=== PATIENT | male | born 1995 | race Hispanic/Latino ===

== ENCOUNTER 2017-08-11 11:04 | Emergency (ER) | payer BC, SELFPAY ==
--- OUTSIDE RECORDS SUMMARY | 2017-08-11 11:07 | XMS REPORT ---
:1995 [facility] Address [address] [place] [address] Dr. Dar[address]. [address] [place] [address] Care Team Providers Name Role Phone DR CARLEE MENDEZ Unavailable Unavailable Problems This patient has no known problems. Allergies, Adverse Reactions, Alerts This patient has no known allergies or adverse reactions. Medications This patient has no known medications. Encounters Start End Encounter Admission Attending Care Care Encounter Date/Time Date/Time Type Type Clinicians Facility Department ID 2017-03-02 2017-03-02 Emergency E CARLEE MENDEZ [facility] [id number] 13:15:00 16:20:00 Results Test Description Test Time Test Comments Text Results Atomic Results Result Comments DIRECT STREP GROUP A 2017-03-04 14:11:00 Test Item Value Reference Range Comments Culture Observations (test code=COB1) NO BETA HEMOLYTIC STREPTOCOCCUS ISOLATED Direct Exam (test code=DE1) NEGATIVE FOR STREP A ANTIGEN DIRECT INFLUENZA A AND B [id number] 14:32:00 Test Item Value Reference Range Comments Direct Exam (test code=DE1) PRESUMPTIVE NEGATIVE FOR THE PRESENCE OF INFLUENZA ANTIGEN COMPREHENSIVE METABOLIC [id number] 14:31:00 Test Item Value Reference Range Comments GLUCOSE (test code=06D) 90 mg/dL 75-100 SODIUM (test code=01A) 138 mmol/L 136-145 POTASSIUM (test code=01B) 3.8 mmol/L 3.6-5.1 CHLORIDE (test code=04A) 103 mmol/L 98-107 CO2 (test code=02A) 28 mmol/L 22-32 ANION GAP (test code=ANG) 10.8 mmol/L BUN (test code=05D) 9 mg/dL 7-18 CREATININE (test code=03E) 0.9 mg/dL 0.7-1.3 BUN/CREA (test code=BCR) 10 12-20 CALCIUM (test code=09D) 9.2 mg/dL 8.3-9.5 BILI TOTAL (test code=11A) 0.4 mg/dL 0.2-1.0 PROTEIN (test code=07D) 8.5 g/dL 6.4-8.2 ALBUMIN (test code=08D) 4.3 g/dL 3.5-4.8 GLOBULIN (test code=GLB) 4.2 g/dL 1.5-3.8 ALB/GLOB (test code=AGRR) 1.0 1.0-2.6 ALK PHOS (test code=35A) 124 IU/L 42-121 AST (test code=30A) 18 IU/L <=42 ALT (test code=31A) 31 IU/L <=78 XR ABDOMEN 2 VIEWS W/PA [id number] 14:24:32Abdominal series, 3 views.Location Code: [id number] HISTORY: Abdominal pain.COMPARISON: None.COMMENTS: A frontal view of the chest shows the lungs to be clear andwell- inflated. The costophrenic angles are sharp. The cardiomediastinalsilhouette is unremarkable.Supine and upright views of the abdomen demonstrate a normal bowel gas pattern. Stool and gas are present throughout the colon and rectum. IMPRESSION: No acute [id number] 14:18:00 Test Item Value Reference Range Comments COLOR (test code=COLU) YELLOW YELLOW CLARITY (test code=CLA) CLEAR CLEAR GLUCOSE UR (test code=UA GLUCOSE) NEGATIVE NEGATIVE BILI UR (test code=BILE) NEGATIVE NEGATIVE KETONES UR (test code=OSBALDO) NEGATIVE NEGATIVE SP GRAVITY (test code=SPGR) 1.010 1.005-1.030 PH UR (test code=PH) 6.5 4.5-8.0 PROTEIN UR (test code=PU) NEGATIVE NEGATIVE UROBIL UR (test code=UROQ) 0.2 EU/dL 0.2-1.0 NITRITE UR (test code=NITRITE) NEGATIVE NEGATIVE BLOOD UR (test code=UA BLOOD) NEGATIVE NEGATIVE LEUK ES UR (test code=LEUK) NEGATIVE NEGATIVE CBC (INCLUDES AUTOMATED DIFFERENTIAL)2017-03-02 14:16:00 Test Item Value Reference Range Comments WBC (test code=WBC) 7.3 10\S\3/uL 4.5-13.0 RBC (test code=RBC) 5.43 10\S\6/uL 4.30-5.70 HGB (test code=HBG) 15.5 g/dL 14.0-18.0 HCT (test code=HCT) 44.4 % 35.0-46.0 MCV (test code=MCV) 81.8 fL 80.0-94.0 MCH (test code=MCH) 28.5 pg 27.0-31.0 MCHC (test code=MCHC) 34.9 g/dL 32.0-36.0 RDW (test code=RDW) 12.9 % 11.5-14.5 PLT (test code=PLT) 256 10\S\3/uL 130-400 MPV (test code=MPV) 10.3 fL 9.4-12.4 NEUTROP # (test code=NE#) 5.7 10\S\3/uL 2.0-8.0 LYMPH # (test code=LY#) 0.4 10\S\3/uL 1.2-4.0 MONOCYTE # (test code=MO#) 1.1 10\S\3/uL 0.0-1.1 EOSINOPH # (test code=EO#) 0.2 10\S\3/uL 0.0-0.7 BASOPHIL # (test code=BA#) 0.1 10\S\3/uL 0.0-0.3 IG # (test code=IG#) 0.01 10\S\3/uL 0.00-0.06 NRBC # (test code=NRBC#) 0.00 10\S\3/uL 0.00-0.01 NEUTROPH % (test code=NE%) 77.1 % 35.0-73.0 LYMPH % (test code=LY%) 5.7 % 20.0-55.0 MONO % (test code=MO%) 14.4 % 2.5-10.0 EOSINOPH % (test code=EO%) 2.0 % 0.0-5.0 BASOPHIL % (test code=BA%) 0.7 % 0.0-2.0 IG % (test code=IG%) 0.1 % 0.0-0.8 NRBC% (test code=NRBC%) 0.0 % 0.0-0.2 MANDIFF (test code=MDIFF) NO NO RBC MORPH (test code=RBCMOR) NORMAL
--- NOTE | 2017-08-11 12:43 | RAD REPORT ---
EXAM DESCRIPTION: CT - Head Brain Wo Cont - 08/11/2017 12:35 pm CLINICAL HISTORY: History of trauma to head, headache. Head injury. Vomiting. COMPARISON: [id number] dated 08/21/2010 TECHNIQUE: All CT scans are performed using dose optimization technique as appropriate and may inclu de automated exposure control or mA/KV adjustment according to patient size. FINDINGS: No intracranial hemorrhage, hydrocephalus or extra-axial fluid collection.No areas of brai n edema or evidence of midline shift. The paranasal sinuses and mastoids are clear. The calvarium is intact. IMPRESSION: No acute intracranial abnormality.
--- NOTE | 2017-08-11 12:54 | EDPHYS ---
Physician Documentation [facility] Name: Michael Thornton Age: 21 yrs Sex: Male : 1995 Arrival Date: 08/11/2017 Time: 11:08 Bed 16 Private MD: Adiel Mireles M ED Physician Jorge Delaney HPI: 08/11 11:57 This 21 yrs old Male presents to ER via Ambulatory with complaints of Headache pm1 and sore throat. 11:58 Associated signs and symptoms: Loss of consciousness: This patient did not experience pm1 any loss of consciousness. Pertinent positives: headache, nausea, vomiting, Pertinent negatives: dazed, double vision, neck pain, weakness in extremities, generalized weakness. Severity of symptoms: in the emergency department the symptoms are actually worse. Patient with injury to his right forehead yazdanism area on Sunday. 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 No LOC. Patient with onset of sore throat the following day. Onset of fever last night 101. Painful swallowing. Historical: - Allergies: 11:12 No Known Allergies; hj - Home Meds: 11:12 None [Active]; hj - PMHx: 11:12 None; hj - PSHx: 11:12 None; hj - Immunization history:: Adult Immunizations up to date. - Social history:: Smoking status: Patient/guardian denies using tobacco, Patient/guardian denies using alcohol. - Ebola Screening: : Patient negative for fever greater than or equal to 101.5 degrees Fahrenheit, and additional compatible Ebola Virus Disease symptoms. ROS: 11:58 Constitutional: Negative for fever, chills, and weight loss, Eyes: Negative for injury, pm1 pain, redness, and discharge. 11:58 Neck: Negative for injury, pain, and swelling, Cardiovascular: Negative for chest pain, palpitations, and edema, Respiratory: Negative for shortness of breath, cough, wheezing, and pleuritic chest pain, Abdomen/GI: Negative for abdominal pain, nausea, vomiting, diarrhea, and constipation, Back: Negative for injury and pain, : Negative for injury, bleeding, discharge, and swelling, MS/Extremity: Negative for injury and deformity, Skin: Negative for injury, rash, and discoloration. 11:58 ENT: Positive for sore throat, Negative for drainage from ear(s), ear pain, rhinorrhea, difficulty swallowing, difficulty handling secretions, hoarseness. 11:58 Neuro: Positive for headache, Negative for altered mental status, numbness, tingling, weakness. Exam: 12:00 Constitutional: This is a well developed, well nourished patient who is awake, alert, pm1 and in no acute distress. 12:00 Eyes: Pupils equal round and reactive to light, extra-ocular motions intact. Lids and lashes normal. Conjunctiva and sclera are non-icteric and not injected. Cornea within normal limits. Periorbital areas with no swelling, redness, or edema. Neck: Trachea midline, no thyromegaly or masses palpated, and no cervical lymphadenopathy. Supple, full range of motion without nuchal rigidity, or vertebral point tenderness. No Meningismus. Chest/axilla: Normal chest wall appearance and motion. Nontender with no deformity. No lesions are appreciated. 12:00 Cardiovascular: Regular rate and rhythm with a normal S1 and S2. No gallops, murmurs, or rubs. Normal PMI, no JVD. No pulse deficits. Respiratory: Lungs have equal breath sounds bilaterally, clear to auscultation and percussion. No rales, rhonchi or wheezes noted. No increased work of breathing, no retractions or nasal flaring. Abdomen/GI: Soft, non-tender, with normal bowel sounds. No distension or tympany. No guarding or rebound. No evidence of tenderness throughout. Back: No spinal tenderness. No costovertebral tenderness. Full range of motion. Skin: Warm, dry with normal turgor. Normal color with no rashes, no lesions, and no evidence of cellulitis. MS/ Extremity: Pulses equal, no cyanosis. Neurovascular intact. Full, normal range of motion. 12:00 Head/face: Exam is negative for dang signs, raccoon eyes, Noted is no obvious of injury or deformity except contusion, that is superficial, of the forehead. 12:00 ENT: External ear(s): are unremarkable, Ear canal(s): are normal, TM's: are normal, Nose: is normal, Mouth: is normal, Posterior pharynx: Airway: no evidence of obstruction, patent, Tonsils: bilaterally enlarged, with erythema, no exudate, no ulcerations, erythema, that is moderate, exudate, is not appreciated, peritonsillar mass, is not appreciated, pooling of secretions, is not appreciated. 12:00 Neuro: Orientation: is normal, Cranial nerves: CN II- XII are normal as tested, Cerebellar function: normal finger to nose testing, Motor: moves all fours, Sensation: is normal, no obvious gross deficits, Gait: is steady, at a normal pace, without difficulty. Vital Signs: 11:13 BP 135 / 86; Pulse 102; Resp 18; Temp 99.6(TE); Pulse Ox 99% on R/A; Weight 82.55 kg; hj Height 5 ft. 6 in. (167.64 cm); Pain 10/10; 11:13 Body Mass Index 29.37 (82.55 kg, 167.64 cm) Dietrich Coma Score: 11:58 Eye Response: spontaneous(4). Verbal Response: oriented(5). Motor Response: obeys pm1 commands(6). Total: 15. MDM: 11:19 Patient medically screened. pm1 12:46 Data reviewed: vital signs. Data interpreted: Pulse oximetry: on room air is 99 %. pm1 Interpretation: normal. Counseling: I had a detailed discussion with the patient and/or guardian regarding: the historical points, exam findings, and any diagnostic results supporting the discharge/admit diagnosis, lab results, radiology results, the need for outpatient follow up, to return to the emergency department if symptoms worsen or persist or if there are any questions or concerns that arise at home. 08/11 11:33 Order name: Group A Streptococcus Rapid Sc; Complete Time: 12:32 EDMS 08/11 11:55 Order name: Throat Culture EDMS 08/11 12:08 Order name: Head Brain Wo Cont; Complete Time: 12:46 EDMS Administered Medications: 13:30 Drug: Zofran 4 mg Route: PO; em 13:37 Follow up: Response: Medication administered at discharge. em 13:30 Drug: Tylenol #3 (300 mg-30 mg) 1 tablet Route: PO; em 13:37 Follow up: Response: Medication administered at discharge. em Disposition: 14:30 Co-signature as Attending Physician, Jorge Delaney MD I agree with the assessment and kdr plan of care. Disposition: 08/11/17 12:54 Discharged to Home. Impression: Unspecified injury of head, Acute pharyngitis. - Condition is Stable. - Discharge Instructions: Concussion, Adult, Head Injury, Adult, Pharyngitis, Viral Infections, [id number]. - Prescriptions for Tylenol- Codeine #3 300-30 mg Oral Tablet - take 2 tablet by ORAL route every 6 hours As needed; 30 tablet. Zofran 4 mg Oral Tablet - take 1 tablet by ORAL route every 12 hours As needed; 20 tablet. - Medication Reconciliation Form, Thank You Letter, Antibiotic Education, Prescription Opioid Use, Work release form form. - Follow up: Emergency Department; When: As needed; Reason: Worsening of condition. Follow up: Private Physician; When: 2 - 3 days; Reason: Recheck today's complaints, Continuance of care, Re-evaluation by your physician. - Problem is new. - Symptoms have improved. Signatures: Dispatcher [employer] [facility] Jorge Delaney MD MD kdr Munoz, Edgar, BARN HAND BARN HAND em Rommel Lane RN RN Ray Barnett, JOSLYN VETERINARY ASSISTANT TECHNICIAN pm1 Corrections: (The following items were deleted from the chart) 13:19 13:14 Head Brain Wo Cont+CT.RAD.BRZ ordered. [facility] 13:38 12:54 08/11/2017 12:54 Discharged to Home. Impression: Unspecified injury of headAcute em pharyngitis. Condition is Stable. Forms are Medication Reconciliation Form, Thank You Letter, Antibiotic Education, Prescription Opioid Use. Follow up: Emergency Department; When: As needed; Reason: Worsening of condition. Follow up: Private Physician; When: 2 - 3 days; Reason: Recheck today's complaints, Continuance of care, Re-evaluation by your physician. Problem is new. Symptoms have improved. pm1
--- NOTE | 2017-08-11 12:54 | ER ---
Nurse's Notes [facility] Name: Michael Thornton Age: 21 yrs Sex: Male : 1995 Arrival Date: 08/11/2017 Time: 11:08 Bed 16 Private MD: Adiel Mireles M Diagnosis: Acute pharyngitis;Unspecified injury of head Presentation: 08/11 11:10 Presenting complaint: Patient states: sore throat, vomiting since Sunday, i was working hj at [employer] and a tire bar hit the front of my head, i passed out that day, Sunday, i started having nausea and vomiting;. Transition of care: patient was not received from another setting of care. Onset of symptoms was August 11, 2017. Risk Assessment: Do you want to hurt yourself or someone else? Patient reports no desire to harm self or others. Initial Sepsis Screen: Does the patient meet any 2 criteria? No. Patient's initial sepsis screen is negative. Does the patient have a suspected source of infection? No. Patient's initial sepsis screen is negative. Care prior to arrival: None. 11:10 Method Of Arrival: Ambulatory 11:10 Acuity: KHANH 4 hj Triage Assessment: 11:13 General: Appears in no apparent distress. uncomfortable, Behavior is calm, cooperative, hj appropriate for age. Pain: Complains of pain in head Pain currently is 10 out of 10 on a pain scale. Musculoskeletal: Circulation, motion, and sensation intact. Capillary refill < 3 seconds. Historical: - Allergies: 11:12 No Known Allergies; - Home Meds: 11:12 None [Active]; hj - PMHx: 11:12 None; hj - PSHx: 11:12 None; hj - Immunization history:: Adult Immunizations up to date. - Social history:: Smoking status: Patient/guardian denies using tobacco, Patient/guardian denies using alcohol. - Ebola Screening: : Patient negative for fever greater than or equal to 101.5 degrees Fahrenheit, and additional compatible Ebola Virus Disease symptoms. Screenin:13 Abuse screen: Denies threats or abuse. Denies injuries from another. Nutritional hj screening: No deficits noted. Tuberculosis screening: No symptoms or risk factors identified. Fall Risk None identified. Assessment: 11:23 General: Appears in no apparent distress. uncomfortable, Behavior is calm, cooperative, jl7 appropriate for age. Pain: Complains of pain in headache Pain does not radiate. Pain currently is 10 out of 10 on a pain scale. Quality of pain is described as throbbing, Pain began 2-3 days ago. Is continuous. Neuro: Level of Consciousness is awake, alert, obeys commands, Oriented to person, place, time, situation, Moves all extremities. Gait is steady, Speech is normal. Cardiovascular: Patient's skin is warm and dry. Respiratory: Airway is patent Respiratory effort is even, unlabored, Respiratory pattern is regular, symmetrical. GI: Reports nausea, vomiting, Patient currently denies diarrhea. : No signs and/or symptoms were reported regarding the genitourinary system. EENT: No signs and/or symptoms were reported regarding the EENT system. Derm: Skin is pink, warm \T\ dry. Musculoskeletal: No signs and/or symptoms reported regarding the musculoskeletal system. Vital Signs: 11:13 BP 135 / 86; Pulse 102; Resp 18; Temp 99.6(TE); Pulse Ox 99% on R/A; Weight 82.55 kg; hj Height 5 ft. 6 in. (167.64 cm); Pain 10/10; 11:13 Body Mass Index 29.37 (82.55 kg, 167.64 cm) hj Loretta Coma Score: 11:58 Eye Response: spontaneous(4). Verbal Response: oriented(5). Motor Response: obeys pm1 commands(6). Total: 15. ED Course: 11:08 Patient arrived in ED. jb7 11:09 Adiel Mireles MD is Private Physician. jb7 11:12 Triage completed. hj 11:13 Arm band placed on right wrist. hj 11:14 Patient has correct armband on for positive identification. hj 11:15 Ena Arenas RN is Primary Nurse. jl7 11:16 Ray Wang NP is PHCP. pm1 11:16 Jorge Delaney MD is Attending Physician. pm1 11:23 Strep swab sent to lab. jl7 12:34 Head Brain Wo Cont In Process Unspecified. EDMS 12:34 CT completed. Patient tolerated procedure well. Patient moved back from CT. cw1 13:37 No provider procedures requiring assistance completed. Patient did not have IV access em during this emergency room visit. Administered Medications: 13:30 Drug: Zofran 4 mg Route: PO; em 13:37 Follow up: Response: Medication administered at discharge. em 13:30 Drug: Tylenol #3 (300 mg-30 mg) 1 tablet Route: PO; em 13:37 Follow up: Response: Medication administered at discharge. em Outcome: 12:54 Discharge ordered by MD. pm1 13:38 Discharged to home ambulatory. em 13:38 Condition: good 13:38 Discharge instructions given to patient, Instructed on discharge instructions, follow up and referral plans. no drinking with medication, no driving heavy equipment, medication usage, Demonstrated understanding of instructions, follow-up care, medications, Prescriptions given X 2. 13:38 Patient left the ED. em Signatures: Dispatcher [employer] EDMS Woody Schmid LVN STUDENT AFFAIRS VICE PRESIDENTTrisha Coelho cw[address] RN RN Ray Barnett NP ROCK BREAKER pm1 Ena Arenas RN RN jl7 Toy Barbosa jb7 Corrections: (The following items were deleted from the chart) 11:14 11:13 Pulse 102bpm; Resp 18bpm; Pulse Ox 99% RA; Temp 99.6F Temporal; 82.55 kg; Height hj 5 ft. 6 in.; BMI: 29.3; Pain 10/10; hj
[2017-08-11] MEDS ORDERED: ONDANSETRON 4 MG (ODT) TAB ONE (13:25)
[2017-08-11] MEDS ORDERED: CODEINE 30MG/APAP 300MG TAB ONE (13:25)
== END 2017-08-11 13:38 | disposition home or self-care (01) ==
LOC: ER 11:04
DX: S09.90XA Unspecified injury of head, initial encounter (principal); J02.9 Acute pharyngitis, unspecified; W22.8XXA Striking against or struck by other objects, initial encounter; Y93.89 Activity, other specified; Y92.89 Other specified places as the place of occurrence of the external cause; Y99.0 Civilian activity done for income or pay
CPT/HCPCS: 70450; 87070; 87081; 99284

== ENCOUNTER 2019-04-10 21:17 | Emergency (ER) | payer BC, SELFPAY ==
--- OUTSIDE RECORDS SUMMARY | 2019-04-10 21:19 | XMS REPORT ---
:1995 [facility] Address [address] [place] [address] Dr. Darby. [address] [place] [address] Care Team Providers Name Role Phone DR CARLEE MENDEZ Unavailable Unavailable Problems This patient has no known problems. Allergies, Adverse Reactions, Alerts This patient has no known allergies or adverse reactions. Medications This patient has no known medications. Encounters Start End Encounter Admission Attending Care Care Encounter Date/Time Date/Time Type Type Clinicians Facility Department ID 2017-03-02 2017-03-02 Emergency E [address]LEE MENDEZ [facility] [id number] 13:15:00 16:20:00 Results Test Description Test Time Test Comments Text Results Atomic Results Result Comments DIRECT STREP GROUP A 2017-03-04 14:11:00 Test Item Value Reference Range Comments Culture Observations (test code=COB1) NO BETA HEMOLYTIC STREPTOCOCCUS ISOLATED Direct Exam (test code=DE1) NEGATIVE FOR STREP A ANTIGEN DIRECT INFLUENZA A AND B [id number] 14:32:00 Test Item Value Reference Range Comments Direct Exam (test code=DE1) PRESUMPTIVE NEGATIVE FOR THE PRESENCE OF INFLUENZA ANTIGEN COMPREHENSIVE METABOLIC [id number] 14:31:00 Test Item Value Reference Range Comments [...] IU/L <=78 XR ABDOMEN 2 VIEWS W/PA [id number] 14:24:32Abdominal series, 3 views.Location Code: [id number] HISTORY: Abdominal pain.COMPARISON: None.COMMENTS: A frontal view of the chest shows the lungs to be clear andwell- inflated. The costophrenic angles are sharp. The cardiomediastinalsilhouette is unremarkable.Supine and upright views of the abdomen demonstrate a normal bowel gas pattern. Stool and gas are present throughout the colon and rectum. IMPRESSION: No acute [id number] 14:18:00 Test Item Value Reference Range Comments [...]
[2019-04-10 22:53] LABS: Creatine Phosphokinase 291 U/L (39-308); Troponin (Emerg Dept Use Only) < 0.02 ng/mL (0.0-0.045)
[2019-04-10 23:41] LABS: Absolute Lymphocytes (CBC) 3.4 K/uL (0.7-4.9); Basophils % 0.6 % (0-1.3); Lymphocytes % 33.2 % (15.3-44.8); MPV 9.1 fL (7.6-11.3); RBC Red Blood Cell Count 4.97 M/uL (4.33-5.43)
[2019-04-10] MEDS ORDERED: SIMETHICONE 80 MG TAB ONE (23:59)
[2019-04-11] MEDS ORDERED: NA CHLORIDE 0.9% 1,000 ML ONE
[2019-04-11 00:02] LABS: BUN Blood Urea Nitrogen 13 mg/dL (7-18); Bicarbonate 29 mmol/L (21-32); Glucose Level 109 mg/dL (74-106); Potassium 3.8 mmol/L (3.5-5.1); Sodium Level 140 mmol/L (136-145)
--- NOTE | 2019-04-11 01:24 | EDPHYS ---
Physician Documentation [facility] Name: Michael Thornton Age: 23 yrs Sex: Male : 1995 Arrival Date: 04/10/2019 Time: 21:19 Bed 18 Private MD: ED Physician Wyatt Mesa HPI: 04/10 22:23 This 23 yrs old Male presents to ER via Ambulatory with complaints of Chest snw Pain. 22:23 Onset: The symptoms/episode began/occurred suddenly. Associated signs and symptoms: snw Pertinent positives: chest pain, dizziness, diaphoresis, no nausea, vomiting, cough. Historical: - Allergies: 21:34 No Known Allergies; lp1 - Home Meds: 21:34 None [Active]; lp1 - PMHx: 21:34 None; lp1 - PSHx: 21:34 None; lp1 - Immunization history:: Adult Immunizations up to date. - Coronavirus screen:: The patient has NOT traveled to [place] in the past 14 days. The patient has NOT had contact with known/suspected case of Coronavirus?. - Social history:: Smoking status: Patient denies any tobacco usage or history of. - Ebola Screening: : No symptoms or risks identified at this time. ROS: 22:21 Constitutional: Negative for fever, chills, and weight loss, Eyes: Negative for injury, snw pain, redness, and discharge, ENT: Negative for injury, pain, and discharge, Neck: Negative for injury, pain, and swelling, Respiratory: Negative for shortness of breath, cough, wheezing, and pleuritic chest pain, Abdomen/GI: Negative for abdominal pain, nausea, vomiting, diarrhea, and constipation, Back: Negative for injury and pain, : Negative for injury, bleeding, discharge, and swelling, MS/Extremity: Negative for injury and deformity, Skin: Negative for injury, rash, and discoloration, Neuro: Negative for headache, weakness, numbness, tingling, and seizure, Psych: Negative for depression, anxiety, suicide ideation, homicidal ideation, and hallucinations. 22:21 Cardiovascular: Positive for chest pain, of the mid-sternal area, pt states he has had intermittent pain all week, sometimes worse with position change, no nausea, no vomiting, did rise today and get dizzy and mildly diaphoretic, had to sit down until feeling passed. Exam: 22:21 Constitutional: This is a well developed, well nourished patient who is awake, alert, snw and in no acute distress. Head/Face: Normocephalic, atraumatic. Eyes: Pupils equal round and reactive to light, extra-ocular motions intact. Lids and lashes normal. Conjunctiva and sclera are non-icteric and not injected. Cornea within normal limits. Periorbital areas with no swelling, redness, or edema. ENT: Nares patent. No nasal discharge, no septal abnormalities noted. Tympanic membranes are normal and external auditory canals are clear. Oropharynx with no redness, swelling, or masses, exudates, or evidence of obstruction, uvula midline. Mucous membranes moist. Neck: Trachea midline, no thyromegaly or masses palpated, and no cervical lymphadenopathy. Supple, full range of motion without nuchal rigidity, or vertebral point tenderness. No Meningismus. Chest/axilla: Normal chest wall appearance and motion. Nontender with no deformity. No lesions are appreciated. Cardiovascular: Regular rate and rhythm with a normal S1 and S2. No gallops, murmurs, or rubs. Normal PMI, no JVD. No pulse deficits. Respiratory: Lungs have equal breath sounds bilaterally, clear to auscultation and percussion. No rales, rhonchi or wheezes noted. No increased work of breathing, no retractions or nasal flaring. Abdomen/GI: Soft, non-tender, with normal bowel sounds. No distension or tympany. No guarding or rebound. No evidence of tenderness throughout. Back: No spinal tenderness. No costovertebral tenderness. Full range of motion. Skin: Warm, dry with normal turgor. Normal color with no rashes, no lesions, and no evidence of cellulitis. MS/ Extremity: Pulses equal, no cyanosis. Neurovascular intact. Full, normal range of motion. Neuro: Awake and alert, GCS 15, oriented to person, place, time, and situation. Cranial nerves II-XII grossly intact. Motor strength 5/5 in all extremities. Sensory grossly intact. Cerebellar exam normal. Normal gait. Psych: Awake, alert, with orientation to person, place and time. Behavior, mood, and affect are within normal limits. Vital Signs: 21:33 BP 139 / 81; Pulse 73; Resp 18; Temp 98.1(O); Pulse Ox 99% on R/A; Weight 92.99 kg (R); lp1 Height 5 ft. 6 in. (167.64 cm); Pain 7/10; 23:00 BP 123 / 72; Pulse 71; Resp 18; Pulse Ox 99% on R/A; wh 04/11 00:00 BP 123 / 77; Pulse 75; Resp 18; Pulse Ox 98% on R/A; wh 01:30 BP 122 / 61; Pulse 65; Resp 18; Pulse Ox 100% ; wh 04/10 21:33 Body Mass Index 33.09 (92.99 kg, 167.64 cm) lp1 MDM: 04/10 22:02 Patient medically screened. snw 04/11 01:26 Data reviewed: vital signs, nurses notes. Data interpreted: Pulse oximetry: on room air snw is 98 %. Interpretation: normal. Counseling: I had a detailed discussion with the patient and/or guardian regarding: the historical points, exam findings, and any diagnostic results supporting the discharge/admit diagnosis, lab results, radiology results, the need for outpatient follow up, to return to the emergency department if symptoms worsen or persist or if there are any questions or concerns that arise at home. Response to treatment: the patient's symptoms have mildly improved after treatment. Special discussion: Based on the patient's history, exam, and Dx evaluation, there is no indication for emergent intervention or inpatient Tx. It is understood by the patient/guardian that if the Sx's persist or worsen they need to return immediately for re-evaluation. Based on the history and exam findings, there is no indication for further emergent testing or inpatient evaluation. I discussed with the patient/guardian the need to see the system configuration specialist for further evaluation of the symptoms. I discussed with the patient/guardian the need to see the primary care provider for further evaluation of the symptoms. 04/10 22:02 Order name: CPK; Complete Time: 22:54 snw 04/10 22:02 Order name: Troponin (emerg Dept Use Only); Complete Time: 22:54 snw 04/10 22:02 Order name: Chest Pa And Lat (2 Views) XRAY snw 04/10 23:22 Order name: CBC with Diff; Complete Time: 23:45 snw 04/10 23:22 Order name: Chem 7; Complete Time: 00:11 snw 04/10 23:22 Order name: DD; Complete Time: 23:50 snw 04/10 22:02 Order name: EKG; Complete Time: 22:03 snw 04/10 22:02 Order name: EKG - Nurse/Tech; Complete Time: 22:05 [facility] 04/10 23:51 Order name: CT Chest For PE Angio snw Administered Medications: 04/10 23:58 Drug: Simethicone 240 mg Route: PO; 04/11 01:38 Follow up: Response: No adverse reaction 04/10 23:59 Drug: NS 0.9% 1000 ml Route: IV; Rate: 1 bolus; Site: right antecubital; 04/11 01:38 Follow up: Response: No adverse reaction; IV Status: Completed infusion Disposition: 06:24 Co-signature as Attending Physician, Wyatt Mesa MD Did not see or evaluate patient. ps1 Signature is for administrative purposes. . Disposition: 04/11/19 01:23 Discharged to Home. Impression: Chest pain, unspecified, Hiatal hernia. - Condition is Stable. - Discharge Instructions: Nonspecific Chest Pain, Hiatal Hernia. - Prescriptions for Pepcid 20 mg Oral Tablet - take 1 tablet by ORAL route once daily; 20 tablet. - Work release form, Medication Reconciliation Form, Thank You Letter, Antibiotic Education, Prescription Opioid Use form. - Follow up: Emergency Department; When: As needed; Reason: Worsening of condition. Follow up: Private Physician; When: 2 - 3 days; Reason: Recheck today's complaints, Continuance of care, Re-evaluation by your physician. - Notes: Gas-X may help symptoms. Signatures: Dispatcher [employer] EDMS Oumou Painter, TOP FRAME FITTER-C TOP FRAME FITTER-Csnw Karoline Cope, RN RN lpNeelima Eli Phillip, MD MD ps1 Corrections: (The following items were deleted from the chart) 01:39 01:23 04/11/2019 01:23 Discharged to Home. Impression: Chest pain, unspecified; Hiatal wh hernia. Condition is Stable. Forms are Medication Reconciliation Form, Thank You Letter, Antibiotic Education, Prescription Opioid Use. Follow up: Emergency Department; When: As needed; Reason: Worsening of condition. Follow up: Private Physician; When: 2 - 3 days; Reason: Recheck today's complaints, Continuance of care, Re-evaluation by your physician. snw
--- NOTE | 2019-04-11 01:24 | ER ---
Nurse's Notes [facility] Name: Michael Thornton Age: 23 yrs Sex: Male : 1995 Arrival Date: 04/10/2019 Time: 21:19 Bed 18 Private MD: Diagnosis: Chest pain, unspecified;Hiatal hernia Presentation: 04/10 21:32 Presenting complaint: Patient states: Chest pain to middle of chest that began lp1 yesterday; worse on palpation, states feeling like pressure, worse on certain motions; Denies any trauma to chest. Transition of care: patient was not received from another setting of care. Onset of symptoms was April 09, 2019. Risk Assessment: Do you want to hurt yourself or someone else? Patient reports no desire to harm self or others. Initial Sepsis Screen: Does the patient meet any 2 criteria? No. Patient's initial sepsis screen is negative. Does the patient have a suspected source of infection? No. Patient's initial sepsis screen is negative. Care prior to arrival: None. 21:32 Method Of Arrival: Ambulatory lp1 21:32 Acuity: KHANH 3 lp1 Historical: - Allergies: 21:34 No Known Allergies; lp1 - Home Meds: 21:34 None [Active]; lp1 - PMHx: 21:34 None; lp1 - PSHx: 21:34 None; lp1 - Immunization history:: Adult Immunizations up to date. - Coronavirus screen:: The patient has NOT traveled to [place] in the past 14 days. The patient has NOT had contact with known/suspected case of Coronavirus?. - Social history:: Smoking status: Patient denies any tobacco usage or history of. - Ebola Screening: : No symptoms or risks identified at this time. Screenin:34 Abuse screen: Denies threats or abuse. Denies injuries from another. Nutritional lp1 screening: No deficits noted. Tuberculosis screening: No symptoms or risk factors identified. Fall Risk None identified. Assessment: 21:45 General: Appears in no apparent distress. Behavior is calm, cooperative, appropriate wh for age. Pain: Complains of pain in mid-sternal area Pain does not radiate. Pain currently is 5 out of 10 on a pain scale. Quality of pain is described as pressure, Pain began 1 day ago. Neuro: Level of Consciousness is awake, alert, obeys commands, Oriented to person, place, time, situation, Appropriate for age. Cardiovascular: Heart tones S1 S2 Rhythm is regular. Respiratory: Airway is patent Respiratory effort is even, unlabored, Respiratory pattern is regular, symmetrical, Breath sounds are clear bilaterally. GI: Abdomen is flat, non-distended. : No signs and/or symptoms were reported regarding the genitourinary system. EENT: No signs and/or symptoms were reported regarding the EENT system. Derm: Skin is intact, is healthy with good turgor, Skin is pink, warm \T\ dry. normal. Musculoskeletal: Circulation, motion, and sensation intact. 23:00 Reassessment: Patient appears in no apparent distress at this time. No changes from previously documented assessment. Patient and/or family updated on plan of care and expected duration. Pain level reassessed. Patient is alert, oriented x 3, equal unlabored respirations, skin warm/dry/pink. 04/11 00:14 Reassessment: Patient appears in no apparent distress at this time. No changes from previously documented assessment. Patient and/or family updated on plan of care and expected duration. Pain level reassessed. Patient is alert, oriented x 3, equal unlabored respirations, skin warm/dry/pink. 01:36 Reassessment: Patient appears in no apparent distress at this time. No changes from previously documented assessment. Patient and/or family updated on plan of care and expected duration. Pain level reassessed. Patient is alert, oriented x 3, equal unlabored respirations, skin warm/dry/pink. Vital Signs: 04/10 21:33 BP 139 / 81; Pulse 73; Resp 18; Temp 98.1(O); Pulse Ox 99% on R/A; Weight 92.99 kg (R); lp1 Height 5 ft. 6 in. (167.64 cm); Pain 7/10; 23:00 BP 123 / 72; Pulse 71; Resp 18; Pulse Ox 99% on R/A; wh 04/11 00:00 BP 123 / 77; Pulse 75; Resp 18; Pulse Ox 98% on R/A; wh 01:30 BP 122 / 61; Pulse 65; Resp 18; Pulse Ox 100% ; wh 04/10 21:33 Body Mass Index 33.09 (92.99 kg, 167.64 cm) lp1 ED Course: 04/10 21:19 Patient arrived in ED. cl3 21:33 Triage completed. lp1 21:33 Arm band placed on. lp1 21:34 Patient maintains SpO2 saturation greater than 95% on room air. lp1 21:53 Neelima Mi is Primary Nurse. 21:55 Oumou Painter FNP-C is PHCP. snw 21:55 Wyatt Mesa MD is Attending Physician. snw 22:00 Patient has correct armband on for positive identification. Bed in low position. Call light in reach. Side rails up X 1. monitoring and evaluation advisor on. Pulse ox on. NIBP on. 22:11 Inserted saline lock: 18 gauge in right antecubital area, using aseptic technique. ds4 Blood collected. 22:17 CPK Sent. ds4 22:17 Troponin (emerg Dept Use Only) Sent. ds4 22:21 Chest Pa And Lat (2 Views) XRAY In Process Unspecified. EDMS 04/11 01:05 CT Chest For PE Angio In Process Unspecified. EDMS 01:37 No provider procedures requiring assistance completed. IV discontinued, intact, bleeding controlled, No redness/swelling at site. Administered Medications: 04/10 23:58 Drug: Simethicone 240 mg Route: PO; 04/11 01:38 Follow up: Response: No adverse reaction 04/10 23:59 Drug: NS 0.9% 1000 ml Route: IV; Rate: 1 bolus; Site: right antecubital; 04/11 01:38 Follow up: Response: No adverse reaction; IV Status: Completed infusion Outcome: 01:23 Discharge ordered by . snw 01:37 Discharged to home ambulatory, with family. 01:37 Condition: stable 01:37 Discharge instructions given to patient, family, Instructed on discharge instructions, follow up and referral plans. medication usage, POC Demonstrated understanding of instructions, follow-up care, medications, POC Prescriptions given X 1. 01:39 Patient left the ED. Signatures: Dispatcher [employer] EDNJ Oumou Painter FNP-C FNP-Karoline Anand RN RN lp1 Immanuel Ralph ds4 Neelima Mi Jl Daily cl3
--- NOTE | 2019-04-11 07:50 | RAD REPORT ---
EXAM DESCRIPTION: RAD - Chest Pa And Lat (2 Views) - 04/10/2019 10:25 pm CLINICAL HISTORY: CHEST PAIN COMPARISON: ABDOMEN ACUTE SERIES dated 02/22/2009 TECHNIQUE: Frontal and lateral views of the chest were obtained. FINDINGS: The lungs are clear of a focal consolidation. Shallow inspiration does accentuate bibasila r lung markings. Low likelihood for interstitial edema or infiltrate. Heart size is normal and cent ral vasculature is within normal limits. No pleural effusion or pneumothorax seen. No acute bony fi nding noted. No aortic abnormality. IMPRESSION: No acute cardiopulmonary process.
--- NOTE | 2019-04-11 10:49 | RAD REPORT ---
EXAM DESCRIPTION: CT - Chest For Pe Angio - 04/11/2019 2:23 am CLINICAL HISTORY: CHEST PAIN COMPARISON: None. TECHNIQUE: Axial CT imaging of the thorax utilizing intravenous contrast. Reformatted multiplanar im ages obtained including reconstructed maximum intensity projection images. This exam was performed according to our departmental dose-optimization program which includes automa berenice exposure control, adjustment of the mA and/or kV according to patient size and/or use of iterativ e reconstruction technique FINDINGS: PULMONARY ARTERIES: Normal caliber main pulmonary artery. No filling defect within the ri ght atrium, right ventricle, central pulmonary arteries. Peripheral pulmonary evaluation is limited d ue to suboptimal bolus timing but no large filling defect is grossly evident. HEART/GREAT VESSELS: he heart is borderline enlarged. This is exaggerated by low lung lines. Normal caliber thoracic aorta. MEDIASTINUM/HALIE: Normal appearance of the central airways. Normal esophagus. Small hiatal LUNGS/PLEURA: Lungs are clear. No pneumothorax. No pleural fluid. CHEST WALL/SOFT TISSUES: Unremarkable image thyroid. Nonenlarged bilateral axillary lymph nodes. Int act sternum. Unremarkable thoracic spine. Remaining bony thorax appears intact. UPPER ABDOMEN: Unremarkable liver, spleen, included stomach. IMPRESSION: 1. No pulmonary embolism. 2. No acute cardiopulmonary finding. Electronically signed by: Kathy Alas DO 04/11/2019 1:17 AM COLORIST FORMULATOR Due to temporary technical issues with the PACS/Fluency reporting system, reports are being signed by the in house radiologist as a courtesy to ensure prompt reporting. The interpreting radiologist is f ully responsible for the content of the report.
--- NOTE | 2019-04-11 11:32 | EKG ---
Test Date: 2019-04-10 Test Time: 21:29:04 [place] Operator: MARIIA MEASUREMENT RESULTS: Intervals: Rate: 74 OK: 124 QRSD: 94 QT: 374 QTc: 415 [place]: P: 35 OK: 124 QRS: 84 T: 2 INTERPRETIVE STATEMENTS: Normal sinus rhythm with sinus arrhythmia Normal ECG Compared to ECG 03/06/2013 17:08:11 No significant changes Electronically Signed On 04-11-19 11:31:17 CHIPS SCREEN TENDER by Tobi Dykes
== END 2019-04-11 01:39 | disposition home or self-care (01) ==
LOC: ER 21:17
DX: R07.9 Chest pain, unspecified (principal); K44.9 Diaphragmatic hernia without obstruction or gangrene
CPT/HCPCS: 96361; 93005; 85025; 80048; 36415; 82550; 85379; 84484; 71275; 71046; 96360; 99285; Q9967

== ENCOUNTER 2021-11-15 05:35 | Emergency (ER) | payer BC ==
--- OUTSIDE RECORDS SUMMARY | 2021-11-15 05:37 | XMS REPORT | Continuity of Care Document ---
:1995 Author Organization [facility] t Address [address] [place] [address] Care Team Providers Name Role Phone DR CARLEE MENDEZ Attending Clinician Unavailable DR CARLEE MENDEZ Admitting Clinician Unavailable Problems This patient has no known problems. Allergies, Adverse Reactions, Alerts This patient has no known allergies or adverse reactions. Medications This patient has no known medications. Procedures This patient has no known procedures. Encounters Start End Encounter Admission Attending Care Care Encounter Source Date/Time Date/Time Type Type Clinicians Facility Department ID 2017-03-02 2017-03-02 Emergency E CARLEE MENDEZ [facility] 1000 [id number] Results Test Description Test Time Test Comments Results Result Comments Source DIRECT STREP GROUP A 2017-03-04 14:11:00 Test Item Value Reference Range Interpretation Comme nts Culture Observations (test code = COB1) NO BETA HEMOLY TIC STREPTOCOCCUS ISOLATED Direct Exam (test code = DE1) NEGATIVE FOR STREP A ANTIGEN DIRECT INFLUENZA A AND B [id number] 14:32:00 Test Item Value Reference Range Interpretation Comments Direct Exam (test PRESUMPTIVE NEGATIVE FOR code = DE1) THE PRESENCE OF INFLUENZA ANTIGEN COMPREHENSIVE METABOLIC [id number] 14:31:00 Test Item Value Reference Range Interpretation Comments GLUCOSE (test code = 06D) 90 mg/dL 75-100 SODIUM (test code = 01A) 138 mmol/L 136-145 POTASSIUM (test code = 01B) 3.8 mmol/L 3.6-5.1 CHLORIDE (test code = 04A) 103 mmol/L 98-107 CO2 (test code = 02A) 28 mmol/L 22-32 ANION GAP (test code = ANG) 10.8 mmol/L BUN (test code = 05D) 9 mg/dL 7-18 CREATININE (test code = 03E) 0.9 mg/dL 0.7-1.3 BUN/CREA (test code = BCR) 10 12-20 L CALCIUM (test code = 09D) 9.2 mg/dL 8.3-9.5 BILI TOTAL (test code = 11A) 0.4 mg/dL 0.2-1.0 PROTEIN (test code = 07D) 8.5 g/dL 6.4-8.2 H ALBUMIN (test code = 08D) 4.3 g/dL 3.5-4.8 GLOBULIN (test code = GLB) 4.2 g/dL 1.5-3.8 H ALB/GLOB (test code = AGRR) 1.0 1.0-2.6 ALK PHOS (test code = 35A) 124 IU/L 42-121 H AST (test code = 30A) 18 IU/L <=42 ALT (test code = 31A) 31 IU/L <=78 XR ABDOMEN 2 VIEWS W/PA [id number] 14:24:32Abdominal series, 3 views.Location Code: [id number] HISTORY: Abdominal pain.COMPARISON: None.COMMENTS: A frontal view of the chest shows the lungs to be clear andwell- inflated. The costophrenic angles are sharp. The cardiomediastinalsilhouette is unremarkable.Supine and upright views of the abdomen demonstrate a normal bowel gas pattern. Stool and gas are present throughout the colon and rectum. IMPRE SSION: No acute [id number] 14:18:00 Test Item Value Reference Range Interpretation Comments COLOR (test code = COLU) YELLOW YELLOW CLARITY (test code = CLA) CLEAR CLEAR GLUCOSE UR (test code = UA GLUCOSE) NEGATIVE NEGATIVE BILI UR (test code = BILE) NEGATIVE NEGATIVE KETONES UR (test code = OSBALDO) NEGATIVE NEGATIVE SP GRAVITY (test code = SPGR) 1.010 1.005-1.030 PH UR (test code = PH) 6.5 4.5-8.0 PROTEIN UR (test code = PU) NEGATIVE NEGATIVE UROBIL UR (test code = UROQ) 0.2 EU/dL 0.2-1.0 NITRITE UR (test code = NITRITE) NEGATIVE NEGATIVE BLOOD UR (test code = UA BLOOD) NEGATIVE NEGATIVE LEUK ES UR (test code = LEUK) NEGATIVE NEGATIVE CBC (INCLUDES AUTOMATED DIFFERENTIAL)2017-03-02 14:16:00 Test Item Value Reference Range Interpretation Comments WBC (test code = WBC) 7.3 10\S\3/uL 4.5-13.0 RBC (test code = RBC) 5.43 10\S\6/uL 4.30-5.70 HGB (test code = HBG) 15.5 g/dL 14.0-18.0 HCT (test code = HCT) 44.4 % 35.0-46.0 MCV (test code = MCV) 81.8 fL 80.0-94.0 MCH (test code = MCH) 28.5 pg 27.0-31.0 MCHC (test code = MCHC) 34.9 g/dL 32.0-36.0 RDW (test code = RDW) 12.9 % 11.5-14.5 PLT (test code = PLT) 256 10\S\3/uL 130-400 MPV (test code = MPV) 10.3 fL 9.4-12.4 NEUTROP # (test code = NE#) 5.7 10\S\3/uL 2.0-8.0 LYMPH # (test code = LY#) 0.4 10\S\3/uL 1.2-4.0 L MONOCYTE # (test code = MO#) 1.1 10\S\3/uL 0.0-1.1 EOSINOPH # (test code = EO#) 0.2 10\S\3/uL 0.0-0.7 BASOPHIL # (test code = BA#) 0.1 10\S\3/uL 0.0-0.3 IG # (test code = IG#) 0.01 10\S\3/uL 0.00-0.06 NRBC # (test code = NRBC#) 0.00 10\S\3/uL 0.00-0.01 NEUTROPH % (test code = NE%) 77.1 % 35.0-73.0 H LYMPH % (test code = LY%) 5.7 % 20.0-55.0 L MONO % (test code = MO%) 14.4 % 2.5-10.0 H EOSINOPH % (test code = EO%) 2.0 % 0.0-5.0 BASOPHIL % (test code = BA%) 0.7 % 0.0-2.0 IG % (test code = IG%) 0.1 % 0.0-0.8 NRBC% (test code = NRBC%) 0.0 % 0.0-0.2 MANDIFF (test code = MDIFF) NO NO RBC MORPH (test code = RBCMOR) NORMAL
[2021-11-15] MEDS ORDERED: FAMOTIDINE 20 MG TAB ONE (06:06)
[2021-11-15] MEDS ORDERED: MAGNES/ALUMIN/SIMET 30ML UCUP ONE (06:07)
[2021-11-15] MEDS ORDERED: LIDOCAINE VISCOUS 2% SOLN 15 ML UDC ONE (06:07)
--- NOTE | 2021-11-15 07:14 | RAD REPORT ---
EXAM DESCRIPTION: RAD - Chest Single View - 11/15/2021 6:23 am CLINICAL HISTORY: CHESR PAIN COMPARISON: Chest Pa And Lat (2 Views) dated 04/10/2019; ABDOMEN ACUTE SERIES dated 02/22/2009 FINDINGS: Lines: None. Lungs: No evidence of edema or pneumonia. Low lung volumes. Pleural: No significant pleural effusions or pneumothorax. Cardiac: The heart size is within normal limits. Mediastinum: Within normal limits. Bones: No acute fractures. Other: None IMPRESSION: No acute cardiopulmonary disease. Low lung volumes.
--- NOTE | 2021-11-15 07:24 | ER ---
Nurse's Notes [facility] Name: Michael Thornton Age: 25 yrs Sex: Male : 1995 Arrival Date: 11/15/2021 Time: 05:40 Bed 4 Private MD: Diagnosis: Chest pain, unspecified;Hiatal hernia Presentation: 11/15 05:59 Chief complaint: Patient states: C/o chest pain and diarrhea since yesterday, describes ll3 pain as pressure 6/10, states pain "woke me up out of my sleep this morning". Coronavirus screen: Vaccine status: Patient reports receiving the 2nd dose of the covid vaccine. diarrhea. Ebola Screen: No symptoms or risks identified at this time. Initial Sepsis Screen: Does the patient meet any 2 criteria? No. Patient's initial sepsis screen is negative. Does the patient have a suspected source of infection? No. Patient's initial sepsis screen is negative. Risk Assessment: Do you want to hurt yourself or someone else? Patient reports no desire to harm self or others. Onset of symptoms was November 14, 2021. 05:59 Method Of Arrival: Ambulatory ll3 05:59 Acuity: KHANH 3 ll3 Triage Assessment: 06:02 General: Appears uncomfortable, Behavior is calm, cooperative. Pain: Complains of pain ll3 in chest Pain does not radiate. Pain currently is 6 out of 10 on a pain scale. Quality of pain is described as pressure, Pain began 1 day ago. Is continuous, Aggravated by Sitting up. Neuro: Level of Consciousness is awake, alert, obeys commands, Oriented to person, place, time, situation. Cardiovascular: Patient's skin is warm and dry. Rhythm is sinus bradycardia Chest pain is described as Pain is 6 out of 10 on a pain scale. quality is heaviness, pressure, began 1 day ago episodes are continuous. Respiratory: Respiratory effort is even, unlabored, Respiratory pattern is regular, symmetrical. GI: Reports diarrhea, since yesterday. Derm: Skin is pink, warm \\T\\ dry. Musculoskeletal: Circulation, motion, and sensation intact. Historical: - Allergies: 06:02 No Known Allergies; ll3 - Home Meds: 06:02 None [Active]; ll3 - PMHx: 06:02 None; ll3 - PSHx: 06:02 None; ll3 - Immunization history:: Client reports receiving the 2nd dose of the Covid vaccine. - Social history:: Smoking status: Patient denies any tobacco usage or history of. Screenin:58 Abuse screen: Denies threats or abuse. Denies injuries from another. Nutritional ll3 screening: No deficits noted. Tuberculosis screening: No symptoms or risk factors identified. Fall Risk None identified. Assessment: 05:59 General: See triage assessment. ll3 06:57 Reassessment: Patient and/or family updated on plan of care and expected duration. Pain ll3 level reassessed. Patient is alert, oriented x 3, equal unlabored respirations, skin warm/dry/pink. States pain is 3/10 Patient states feeling better. Patient states symptoms have improved. Pain: Complains of pain in chest. 07:39 Reassessment: PT DC HOME AMBULATORY. bp Vital Signs: 05:59 BP 133 / 85; Pulse 60; Resp 20; Temp 98.5(O); Pulse Ox 99% on R/A; Weight 99.79 kg (R); ll3 Height 5 ft. 6 in. (167.64 cm) (R); Pain 6/10; 06:57 BP 141 / 90; Pulse 56; Resp 18; Pulse Ox 98% on R/A; ll3 07:39 BP 131 / 86; Pulse 56; Resp 15; Pulse Ox 99% ; bp 05:59 Body Mass Index 35.51 (99.79 kg, 167.64 cm) ll3 ED Course: 05:40 Patient arrived in ED. bp1 05:51 Lulu Dickey MD is Attending Physician. sd2 06:02 Triage completed. ll3 06:02 Arm band placed on Patient placed in an exam room, on a stretcher, on playground monitor, ll3 on pulse oximetry. EKG completed in triage. Results shown to MD. 06:24 Chest Single View In Process Unspecified. EDMS 06:58 Patient has correct armband on for positive identification. Placed in gown. Bed in low ll3 position. Call light in reach. Client placed on continuous cardiac and pulse oximetry monitoring. NIBP monitoring applied. 06:58 No provider procedures requiring assistance completed. Patient maintains SpO2 ll3 saturation greater than 95% on room air. 07:22 Attending Physician role handed off by Lulu Dickey MD cha 07:22 Dann Alvarez MD is Attending Physician. [facility] 07:25 Ignacio Rob, RN is Primary Nurse. bp 07:39 Patient did not have IV access during this emergency room visit. bp Administered Medications: 06:12 Drug: GI Cocktail without - (Maalox Suspension 30 ml, Lidocaine Liquid 2 % 15 ll3 ml) Route: PO; 06:56 Follow up: Response: No adverse reaction; Marked relief of symptoms ll3 06:12 Drug: Pepcid (famotidine) 20 mg Route: PO; ll3 06:57 Follow up: Response: No adverse reaction; Marked relief of symptoms ll3 Medication: 06:59 VIS not applicable for this client. ll3 Outcome: 07:23 Discharge ordered by . vanessa 07:39 Discharged to home ambulatory. bp 07:39 Condition: stable 07:39 Discharge instructions given to patient, Instructed on discharge instructions, follow up and referral plans. medication usage, Demonstrated understanding of instructions, follow-up care, medications, Prescriptions given X 1. 07:41 Patient left the ED. bp Signatures: Dispatcher [employer] EDMS Dann Alvarez MD MD cha Peltier, Brian, RN RN bp Elyse Gerber [facility] Lucretia Mejia RN RN 3 [facility] sd2 Corrections: (The following items were deleted from the chart) 06:20 06:19 General: See triage assessment. ll3 ll3
--- NOTE | 2021-11-15 07:24 | EDPHYS ---
Physician Documentation [facility] Name: Michael Thornton Age: 25 yrs Sex: Male : 1995 Arrival Date: 11/15/2021 Time: 05:40 Bed 4 Private MD: ED Physician Dann Alvarez HPI: 11/15 06:16 This 25 yrs old Male presents to ER via Ambulatory with complaints of Chest sd2 Pain. 06:16 25 yo M presents with CC of sharp chest pain that has been ongoing intermittently for sd2 the past few days. Reports pain acutely worsened tonight and woke him up out of his sleep. Has been subsiding since then. Reports prior diagnosis of hiatal hernia he was told to have further evaluated but never followed up. He is not currently on any medications for this or reflux. 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 Pain is worsened by eating. He does endorse mild SOB when the pain gets bad. Denies any vomiting or diaphoresis. Does endorse nausea associated with the pain especially after eating. No prior cardiac history. No recent travel or leg edema.. Historical: - Allergies: 06:02 No Known Allergies; ll3 - Home Meds: 06:02 None [Active]; ll3 - PMHx: 06:02 None; ll3 - PSHx: 06:02 None; ll3 - Immunization history:: Client reports receiving the 2nd dose of the Covid vaccine. - Social history:: Smoking status: Patient denies any tobacco usage or history of. ROS: 06:16 Constitutional: Negative for fever, chills, and weight loss, Eyes: Negative for injury, sd2 pain, redness, and discharge, ENT: Negative for injury, pain, and discharge, Cardiovascular: Positive for chest pain, Negative for palpitations, and edema, Respiratory: Positive for shortness of breath, Negative forcough, wheezing. Abdomen/GI: Positive for nausea, Negative for abdominal pain, vomiting, diarrhea. MS/Extremity: Negative for injury and deformity, Skin: Negative for injury, rash, and discoloration, Neuro: Negative for headache, numbness and tingling. Exam: 06:16 Constitutional: This is a well developed, well nourished patient who is awake, alert, sd2 and in no acute distress. Head/Face: Normocephalic, atraumatic. Eyes: EOMI, normal conjunctiva bilaterally Chest/axilla: Normal chest wall appearance and motion. Nontender with no deformity. Cardiovascular: Regular rate and rhythm with a normal S1 and S2. No gallops, murmurs, or rubs. 2+ distal pulses. Respiratory: Lungs have equal breath sounds bilaterally, clear to auscultation and percussion. No rales, rhonchi or wheezes noted. No increased work of breathing, no retractions or nasal flaring. Abdomen/GI: Soft, non-tender, with normal bowel sounds. No guarding or rebound. No evidence of tenderness throughout. Skin: Warm, dry with normal turgor. Normal color with no rashes, no lesions, and no evidence of cellulitis. MS/ Extremity: Pulses equal, no cyanosis. Neurovascular intact. Full, normal range of motion. Ambulatory without difficulty. Psych: Awake, alert, with orientation to person, place and time. Behavior, mood, and affect are within normal limits. 06:16 ECG was reviewed by the Attending Physician. Sinus bradycardia, rate 59, no STEMI sd2 criteria or significant ST-T wave changes Vital Signs: 05:59 BP 133 / 85; Pulse 60; Resp 20; Temp 98.5(O); Pulse Ox 99% on R/A; Weight 99.79 kg (R); ll3 Height 5 ft. 6 in. (167.64 cm) (R); Pain 6/10; 06:57 BP 141 / 90; Pulse 56; Resp 18; Pulse Ox 98% on R/A; ll3 07:39 BP 131 / 86; Pulse 56; Resp 15; Pulse Ox 99% ; bp 05:59 Body Mass Index 35.51 (99.79 kg, 167.64 cm) ll3 MDM: 06:03 Patient medically screened. sd2 06:16 Differential diagnosis: Differential diagnosis includes but is not limited to: ACS, sd2 DVT/PE, pneumothorax, dissection, musculoskeletal, anxiety, anemia, electrolyte abnormality, pneumonia, CHF, COPD among others. The patient's deep vein thrombosis risk score was calculated as follows: Total Score: 0. This patient was found to be at low risk for a deep vein thrombosis by using the Well's assessment criteria. 06:19 The patient's pulmonary embolism risk score was calculated as follows: No Risks (0 sd2 Pts). ELSA Risk Score: TOTAL SCORE = 0. Data reviewed: vital signs, nurses notes. 06:50 Data reviewed: EKG, radiologic studies. Counseling: I had a detailed discussion with sd2 the patient and/or guardian regarding: the historical points, exam findings, and any diagnostic results supporting the discharge/admit diagnosis, radiology results, the need for outpatient follow up, to return to the emergency department if symptoms worsen or persist or if there are any questions or concerns that arise at home. Medical screen evaluation completed. [facility] emergency medical condition absent. ED course: Imaging reviewed. EKG with no ischemic changes. CXR with no acute process. Pt feeling improved after GI cocktail. Advised of continued supportive care and need for outpatient follow up as well as dietary modifications. Pt comfortable with plan for discharge and verbalizes understanding of strict return precautions. . 11/15 06:15 Order name: Chest Single View [facility] 11/15 06:04 Order name: EKG - Nurse/Tech; Complete Time: 06:05 sd2 Administered Medications: 06:12 Drug: GI Cocktail without - (Maalox Suspension 30 ml, Lidocaine Liquid 2 % 15 ll3 ml) Route: PO; 06:56 Follow up: Response: No adverse reaction; Marked relief of symptoms ll3 06:12 Drug: Pepcid (famotidine) 20 mg Route: PO; ll3 06:57 Follow up: Response: No adverse reaction; Marked relief of symptoms ll3 Disposition Summary: 11/15/21 07:23 Discharge Ordered Location: Home vanessa Problem: an acute exacerbation vanessa Symptoms: have improved vanessa Condition: Stable vanessa Diagnosis - Chest pain, unspecified vanessa - Hiatal hernia vanessa Followup: sd2 - With: Private Physician - When: 2 - 3 days - Reason: Recheck today's complaints, Continuance of care, Re-evaluation by your physician Discharge Instructions: - Discharge Summary Sheet sd2 - Nonspecific Chest Pain, Adult sd2 - Hiatal Hernia sd2 Forms: - Medication Reconciliation Form vanessa - Thank You Letter vanessa - Antibiotic Education vanessa - Prescription Opioid Use vanessa - Work release form iw Prescriptions: - Pepcid 20 mg Oral Tablet - take 1 tablet by ORAL route once daily; 20 tablet; Refills: 0, Product sd2 Selection Permitted Signatures: Dispatcher [employer] EDNH Dann Alvarez MD MD cha Loubet, Lynsea, RN RN ll3 Lulu Dickey MD MD sd2 Corrections: (The following items were deleted from the chart) 06:18 06:16 Constitutional: Negative for fever, chills, and weight loss, Eyes: Negative for sd2 injury, pain, redness, and discharge, ENT: Negative for injury, pain, and discharge, Cardiovascular: Negative for chest pain, palpitations, and edema, Respiratory: Negative for shortness of breath, cough, wheezing. Abdomen/GI: Negative for abdominal pain, nausea, vomiting, diarrhea. MS/Extremity: Negative for injury and deformity, Skin: Negative for injury, rash, and discoloration, Neuro: Negative for headache, numbness and tingling. sd2
--- NOTE | 2021-11-16 13:09 | EKG ---
Test Date: 2021-11-15 Test Time: 05:52:48 Plumber Apprentice: TRENA MEASUREMENT RESULTS: Intervals: Rate: 59 SC: 160 QRSD: 88 QT: 408 QTc: 403 [place]: P: 41 SC: 160 QRS: 51 T: 19 INTERPRETIVE STATEMENTS: Sinus bradycardia Otherwise normal ECG Compared to ECG 04/10/2019 21:29:04 Sinus rhythm no longer present Sinus arrhythmia no longer present Electronically Signed On 11-16-21 13:05:44 CDT by Luis Miguel Rose
[2021-11-17 18:16] VITALS: TEMP 98.5
[2021-11-17 18:19] VITALS: BP 131/86; O2SAT 99
== END 2021-11-15 07:41 | disposition home or self-care (01) ==
LOC: ER 05:35
DX: R07.9 Chest pain, unspecified (principal); K44.9 Diaphragmatic hernia without obstruction or gangrene
CPT/HCPCS: 71045; 93005; 99285

== ENCOUNTER 2021-12-04 16:55 | Emergency (ER) | payer BC ==
--- OUTSIDE RECORDS SUMMARY | 2021-12-04 17:03 | XMS REPORT | Continuity of Care Document ---
:1995 Author Organization [facility] t Address [address] [place] [address] Dr. Jacques [address] [place] [id number] Care Team Providers Name Role Phone DR [...] ID 2017-03-02 2017-03-02 Emergency E CARLEE MENDEZ [facility] [id number] [facility] 13:15:00 16:20:00 [facility] Results Test Description Test Time Test Comments Results Result Comments Source DIRECT STREP GROUP A 2017-03-04 14:11:00 Test Item Value Reference Range Interpretation Comme nts Culture Observations (test code = COB1) NO BETA HEMOLY TIC STREPTOCOCCUS ISOLATED Direct Exam (test code = DE1) NEGATIVE FOR STREP A ANTIGEN DIRECT INFLUENZA A AND B [id number] 14:32:00 Test Item Value Reference Range Interpretation Comments Direct Exam (test PRESUMPTIVE NEGATIVE FOR code = DE1) THE PRESENCE OF INFLUENZA ANTIGEN COMPREHENSIVE METABOLIC [id number] 14:31:00 Test Item Value Reference Range Interpretation [...] IU/L <=78 XR ABDOMEN 2 VIEWS W/PA [id number] 14:24:32Abdominal series, 3 views.Location Code: [id number] HISTORY: Abdominal pain.COMPARISON: None.COMMENTS: A frontal view of the chest shows the lungs to be clear andwell- inflated. The costophrenic angles are sharp. The cardiomediastinalsilhouette is unremarkable.Supine and upright views of the abdomen demonstrate a normal bowel gas pattern. Stool and gas are present throughout the colon and rectum. IMPRE SSION: No acute [id number] 14:18:00 Test Item Value Reference Range Interpretation [...]
[2021-12-04 17:38] LABS: Absolute Lymphocytes (CBC) 1.2 K/uL (0.7-4.9); Hematocrit 48.7 % (39.6-49.0); Lymphocytes % 7.3 % (15.3-44.8); MPV 8.6 fL (7.6-11.3); RBC Red Blood Cell Count 5.73 M/uL (4.33-5.43)
[2021-12-04 17:41] LABS: Albumin 4.1 g/dL (3.4-5.0); Bilirubin Total 0.6 mg/dL (0.2-1.0); Potassium 3.9 mmol/L (3.5-5.1); Protein, Total 8.9 g/dL (6.4-8.2)
--- NOTE | 2021-12-04 18:17 | RAD REPORT ---
EXAM DESCRIPTION: CTAbdomen Pelvis W Contrast - 12/04/2021 5:57 pm CLINICAL HISTORY: abd pain COMPARISON: <Comparisons> TECHNIQUE: CT of the abdomen and pelvis was performed with IV contrast. All CT scans are performed using dose optimization technique as appropriate and may include automated exposure control or mA/KV adjustment according to patient size. FINDINGS: Lower chest: No acute abnormality. Liver: No acute abnormality or suspicious lesions. Hepatic steatosis Biliary: No biliary ductal dilatation. Stomach: No significant focal abnormality. Duodenum: No significant focal abnormality. Pancreas: No significant abnormality. Spleen: No significant abnormality. Adrenal: No suspicious lesions. Kidney/ureter: No hydronephrosis. No renal calculi. Retroperitoneum: No retroperitoneal adenopathy. Vascular: No aneurysm. Bowel: No significant focal abnormality. Normal appendix . Peritoneum: No ascites or free air. Bladder: Grossly unremarkable. Reproductive: No adnexal masses. Bones: No acute fracture. Other: n/a IMPRESSION: No acute intra-abdominal or pelvic finding. Normal appendix.
[2021-12-04] MEDS ORDERED: NA CHLORIDE 0.9% 1,000 ML ONE (18:37)
[2021-12-04] MEDS ORDERED: DICYCLOMINE HCL 10 MG CAP ONE (18:37)
[2021-12-04] MEDS ORDERED: FAMOTIDINE 20 MG/2 ML VIAL IV ONE (18:37)
[2021-12-04] MEDS ORDERED: ONDANSETRON 4 MG/2 ML VIAL ONE (18:37)
--- NOTE | 2021-12-04 19:55 | ER ---
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 Coronavirus screen: tw2 diarrhea, fever, nausea, vomiting. Client presents with at least one sign or symptom that may indicate coronavirus-19. Standard/surgical mask placed on the client. Provider contacted for isolation considerations. Ebola Screen: Patient denies travel to an Ebola-affected area in the 21 days before illness onset. Initial Sepsis Screen: Does the patient meet any 2 criteria? HR > 90 bpm. No. Patient's initial sepsis screen is negative. Does the patient have a suspected source of infection? No. Patient's initial sepsis screen is negative. Risk Assessment: Do you want to hurt yourself or someone else? Patient reports no desire to harm self or others. Note provider Lsia Greenwood< [employer]ANT OPERATOR in triage at this time. Onset of symptoms was December 04, 2021. 17:04 Method Of Arrival: Ambulatory tw2 17:04 Acuity: KHANH 3 tw2 Triage Assessment: 17:08 General: Appears in no apparent distress. well groomed, Behavior is calm, cooperative, tw2 appropriate for age. Pain: Complains of pain in abdomen. GI: Reports lower abdominal pain, upper abdominal pain, diarrhea, nausea, vomiting. Historical: - Allergies: 17:06 No Known Allergies; tw2 - Home Meds: 17:06 phentermine oral [Active]; GERD medicine [Active]; tw2 - PMHx: 17:06 hiatal hernia; tw2 - PSHx: 17:06 None; tw2 - Immunization history:: Client reports receiving the 2nd dose of the Covid vaccine. - Social history:: Smoking status: Patient denies any tobacco usage or history of. Screenin:30 Abuse screen: Denies threats or abuse. Denies injuries from another. Nutritional bp screening: No deficits noted. Tuberculosis screening: No symptoms or risk factors identified. Fall Risk None identified. Assessment: 17:16 Reassessment: pt actively vomiting in triage at this time. tw2 18:30 Reassessment: RECD PT FROM TRIAGE. GI: Abdomen is non-distended. bp Vital Signs: 17:07 BP 149 / 92; Pulse 111; Resp 18; Temp 99(TE); Pulse Ox 99% on R/A; Weight 97.52 kg; tw2 Height 5 ft. 6 in. (167.64 cm) (M); Pain 9/10; 18:30 BP 144 / 90; Pulse 89; Resp 16; Pulse Ox 96% ; bp 20:36 BP 134 / 90; Pulse 94; Resp 17; Pulse Ox 97% on R/A; ll3 17:07 Body Mass Index 34.70 (97.52 kg, 167.64 cm) tw2 ED Course: 17:00 Patient arrived in ED. ja2 17:01 Bri Greenwood FNP-C [facility]. kb 17:01 Dann Alvarez MD is Attending Physician. kb 17:05 Triage completed. tw2 17:05 Arm band placed on. tw2 17:11 COVID-19 SARS RT PCR (Document "Date of Onset" if Symptomatic) Sent. tw2 17:16 Inserted saline lock: 20 gauge in right antecubital area, using aseptic technique. tw2 Blood collected. 17:59 CT Abd/Pelvis - IV Contrast Only In Process Unspecified. EDMS 18:30 Patient has correct armband on for positive identification. Bed in low position. Call bp light in reach. Side rails up X2. 18:35 Ignacio Rob, RN is Primary Nurse. bp 20:35 No provider procedures requiring assistance completed. IV discontinued, intact, ll3 bleeding controlled, No redness/swelling at site. Pressure dressing applied. Administered Medications: 18:41 Drug: NS 0.9% 1000 ml Route: IV; Rate: 1 bolus; Site: right antecubital; hb 20:37 Follow up: Response: No adverse reaction; IV Status: Completed infusion; IV Intake: ll3 1000ml 18:41 Drug: Pepcid (famotidine) 20 mg Route: IVP; Site: right antecubital; hb 18:41 Drug: Zofran (Ondansetron) 4 mg Route: IVP; Site: right antecubital; hb 19:08 Drug: Bentyl (dicyclomine) 20 mg Route: PO; ll3 20:36 Follow up: Response: No adverse reaction; Marked relief of symptoms ll3 Medication: 20:36 VIS not applicable for this client. ll3 Intake: 20:37 IV: 1000ml; Total: 1000ml. ll3 Outcome: 19:54 Discharge ordered by MD. duarte 20:35 Discharged to home ambulatory, with family. ll3 20:35 Condition: stable 20:35 Discharge instructions given to patient, family, Instructed on discharge instructions, follow up and referral plans. medication usage, Demonstrated understanding of instructions, follow-up care, medications, Prescriptions given X 2. 20:37 Patient left the ED. ll3 Signatures: Dispatcher [employer] EDMS Bri Greenwood, [employer]HALT PLANT OPERATOR-C ASPHALT PLANT OPERATOR-Ckb Abigail Madrid, RN RN Aurelia Johnson RN RN 2 Ignacio Rob, RN RN Tamar Stubbs Lynsea RN RN ll3
--- NOTE | 2021-12-04 19:55 | EDPHYS ---
Physician Documentation [facility] Name: Michael Thornton Age: 25 yrs Sex: Male : 1995 Arrival Date: 12/04/2021 Time: 17:00 Bed 19 Private MD: ED Physician Dann Alvarez HPI: 12/04 20:07 This 25 yrs old Male presents to ER via Ambulatory with complaints of kb Nausea/Vomiting/Diarrhea. 20:07 The patient presents to the emergency department with nausea, vomiting, diarrhea. kb Onset: The symptoms/episode began/occurred yesterday. Possible causes: unknown. The symptoms are aggravated by nothing. The symptoms are alleviated by nothing. Associated signs and symptoms: Pertinent positives: abdominal pain, diarrhea, fever, nausea, vomiting. Severity of symptoms: At their worst the symptoms were moderate in the emergency department the symptoms are unchanged. The patient has not experienced similar symptoms in the past. The patient has not recently seen a physician. Pt reports n/v/d, abd pain and fever that started yesterday. . Historical: - Allergies: 17:06 No Known Allergies; tw2 - Home Meds: 17:06 phentermine oral [Active]; GERD medicine [Active]; tw2 - PMHx: 17:06 hiatal hernia; tw2 - PSHx: 17:06 None; tw2 - Immunization history:: Client reports receiving the 2nd dose of the Covid vaccine. - Social history:: Smoking status: Patient denies any tobacco usage or history of. ROS: 20:06 Respiratory: Negative for shortness of breath, cough, wheezing, and pleuritic chest kb pain. 20:06 Constitutional: Positive for fever. 20:06 Abdomen/GI: Positive for abdominal pain, nausea, vomiting, and diarrhea. 20:06 All other systems are negative. Exam: 20:06 Constitutional: This is a well developed, well nourished patient who is awake, alert, kb and in no acute distress. Head/Face: Normocephalic, atraumatic. ENT: Moist Mucous membranes Cardiovascular: Regular rate and rhythm with a normal S1 and S2. No gallops, murmurs, or rubs. No pulse deficits. Respiratory: Respirations even and unlabored. No increased work of breathing. Talking in full sentences Skin: Warm, dry with normal turgor. Normal color. MS/ Extremity: Pulses equal, no cyanosis. Neurovascular intact. Full, normal range of motion. Neuro: Awake and alert, GCS 15, oriented to person, place, time, and situation. Moves all extremities. Normal gait. Psych: Awake, alert, with orientation to person, place and time. Behavior, mood, and affect are within normal limits. 20:06 Abdomen/GI: Inspection: abdomen appears normal, Bowel sounds: normal, in all quadrants, Palpation: soft, in all quadrants, mild abdominal tenderness, in all quadrants. Vital Signs: 17:07 BP 149 / 92; Pulse 111; Resp 18; Temp 99(TE); Pulse Ox 99% on R/A; Weight 97.52 kg; tw2 Height 5 ft. 6 in. (167.64 cm) (M); Pain 9/10; 18:30 BP 144 / 90; Pulse 89; Resp 16; Pulse Ox 96% ; bp 20:36 BP 134 / 90; Pulse 94; Resp 17; Pulse Ox 97% on R/A; ll3 17:07 Body Mass Index 34.70 (97.52 kg, 167.64 cm) tw2 MDM: 17:07 Patient medically screened. kb 20:06 Data reviewed: vital signs, nurses notes. Data interpreted: Pulse oximetry: on room air kb is 96 %. Interpretation: normal. Counseling: I had a detailed discussion with the patient and/or guardian regarding: the historical points, exam findings, and any diagnostic results supporting the discharge/admit diagnosis, lab results, radiology results, the need for outpatient follow up, a family practitioner, a hull and deck remover, to return to the emergency department if symptoms worsen or persist or if there are any questions or concerns that arise at home. 20:08 ED course: Pt is nontoxic in appearance. Tolerating po intake. kb 12/04 17:07 Order name: CBC with Diff; Complete Time: 17:47 kb 12/04 17:07 Order name: CMP; Complete Time: 17:47 kb 12/04 17:07 Order name: Lipase; Complete Time: 17:47 kb 12/04 17:07 Order name: CT Abd/Pelvis - IV Contrast Only; Complete Time: 18:25 kb 12/04 17:07 Order name: Flu; Complete Time: 17:47 kb 12/04 17:07 Order name: COVID-19 SARS RT PCR (Document "Date of Onset" if Symptomatic); Complete kb Time: 17:49 12/04 17:07 Order name: IV Saline Lock; Complete Time: 17:16 kb 12/04 17:07 Order name: Labs collected and sent; Complete Time: 17:16 kb 12/04 18:34 Order name: PO challenge; Complete Time: 19:17 kb Administered Medications: 18:41 Drug: NS 0.9% 1000 ml Route: IV; Rate: 1 bolus; Site: right antecubital; hb 20:37 Follow up: Response: No adverse reaction; IV Status: Completed infusion; IV Intake: ll3 1000ml 18:41 Drug: Pepcid (famotidine) 20 mg Route: IVP; Site: right antecubital; hb 18:41 Drug: Zofran (Ondansetron) 4 mg Route: IVP; Site: right antecubital; hb 19:08 Drug: Bentyl (dicyclomine) 20 mg Route: PO; ll3 20:36 Follow up: Response: No adverse reaction; Marked relief of symptoms ll3 Disposition Summary: 12/04/21 19:54 Discharge Ordered Location: Home kb Condition: Stable kb Diagnosis - Infectious gastroenteritis and colitis, unspecified kb Followup: kb - With: Emergency Department - When: As needed - Reason: Worsening of condition Followup: kb - With: Private Physician - When: 2 - 3 days - Reason: Recheck today's complaints, Continuance of care, Re-evaluation by your physician Discharge Instructions: - Viral Gastroenteritis, Adult, [id number] kb - Discharge Summary Sheet tw2 Forms: - Medication Reconciliation Form kb - Thank You Letter kb - Work release form tw2 - Antibiotic Education kb - Prescription Opioid Use kb Prescriptions: - ondansetron 4 mg Oral tablet,disintegrating - place 1 tablet by TRANSLINGUAL route every 6 hours As needed; 12 tablet; kb Refills: 0, Product Selection Permitted - dicyclomine 20 mg Oral Tablet - take 1 tablet by ORAL route 4 times per day As needed; 20 tablet; Refills: 0, kb Product Selection Permitted Signatures: Dispatcher [employer] Bri Gibbs FNP-C FNP-Ckb Baxter, Heather RN RN Aurelia Johnson RN RN tw2 Loubet, Lynsea, RN RN ll3
[2021-12-04 20:41] VITALS: TEMP 99
[2021-12-04 20:44] VITALS: BP 134/90; O2SAT 97
== END 2021-12-04 20:37 | disposition home or self-care (01) ==
LOC: ER 16:55
DX: A09 Infectious gastroenteritis and colitis, unspecified (principal); Z20.822 Contact with and (suspected) exposure to COVID-19
CPT/HCPCS: 96361; 85025; 36415; 83690; 80053; 87804 ×2; 74177; 96375; 96374; 99284; U0003; Q9967; J7030; J2405

== ENCOUNTER 2023-09-25 12:29 | Emergency (ER) | payer BC ==
--- OUTSIDE RECORDS SUMMARY | 2023-09-25 12:31 | XMS REPORT | Continuity of Care Document ---
Author Name Unknown Address [address] [place] [address] [facility] thconnect Address [address] [place] [address] Care Team Providers Care Bowling Alley Attendant Name Role Phone DR CARLEE MENDEZ Attending Clinician Unavailable DR CARLEE MENDEZ Admitting Clinician Unavailable Encounters Start Date/Time End Date/Time Encounter Type Admission Type Attending Clinicians Care Facility Care Department Encounter ID Source 2017-03-02 13:15:00 2017-03-02 16:20:00 Emergency E CARLEE MENDEZ [facility] [id number] [facility] [place] [place] Results Test Description Test Time Test Comments Results Result Co mments Source DIRECT INFLUENZA A AND B [id number] 14:32:00* Test Item Value Reference Range Interpretation Comme nts Direct Exam (test code = DE1) PRESUMPTIVE NEGATIVE FOR THE PRESENCE OF INFLUENZA ANTIGEN COMPREHENSIVE METABOLIC [id number] 14:31:00* Test Item Value Reference Range Interpretation Comme nts GLUCOSE (test code = 06D) 90 mg/dL [...] IU/L <=78 XR ABDOMEN 2 VIEWS W/PA [id number] 14:24:32Abdominal series, 3 views.Location Code: [id number] HISTORY: Abdominal pain.COMPARISON: None.COMMENT S: A frontal view of the chest shows the lungs to be clear andwell-inflated. The costophrenic angles are sharp. The cardiomediastinalsilhouette is unremarkable.Supine and upright views of the abdomendemonstrate a normal bowel gas pattern. Stool and gas are present throughout the colon and rectum. I MPRESSION: No acute [id number] 14:18:00* Test Item Value Reference Range Interpretation Comme nts COLOR (test code = COLU) YELLOW YELLOW [...] LEUK) NEGATIVE NEGATIVE CBC (INCLUDES AUTOMATED DIFFERENTIAL)2017-03-02 14:16:00* Test Item Value Reference Range Interpretation Comme nts WBC (test code = WBC) 7.3 10\S\3/uL [...]
[2023-09-25] MEDS ORDERED: NA CHLORIDE 0.9% 2,000 ML ONE (13:08)
[2023-09-25 13:30] LABS: Absolute Lymphocytes (CBC) 2.5 K/uL (0.7-4.9); Absolute Monocytes 0.5 K/uL (0.1-1.3); Absolute Neutrophil 4.5 K/uL (1.8-8.0); Basophils % 0.4 % (0-1.3); Eosinophils % 0.3 % (0-4.4); Hematocrit 42.5 % (39.6-49.0); MCH 27.9 pg (27.0-35.0); MCHC 32.8 g/dL (32.0-36.0); MPV 8.4 fL (7.6-11.3); Monocytes % 6.8 % (3.3-12.3); Neutrophils % 59.5 % (41.7-73.7); Platelets 258 thou/uL (152-406); RBC Red Blood Cell Count 5.01 M/uL (4.33-5.43)
[2023-09-25 14:00] LABS: Albumin 3.9 g/dL (3.4-5.0); Anion Gap 7.1 mEq/L (5.0-15.0); Bilirubin Total 0.6 mg/dL (0.2-1.0); Globulin 4.1 g/dL (2.3-3.5); Potassium 4.1 mEq/L (3.5-5.1)
[2023-09-25 15:03] LABS: Specific Gravity 1.008 (1.005-1.030); Urine Bilirubin NEGATIVE (Negative); Urine Blood Negative (Negative); Urine Clarity Clear (Clear); Urine Color Colorless (Yellow); Urine Glucose NEGATIVE (Negative); Urine Ketones NEGATIVE (Negative); Urine Microscopic Reflex YN NO UMIC; Urine Nitrite NEGATIVE (Negative); Urine Protein NEGATIVE (Negative); Urine Urobilinogen Normal (Normal)
--- NOTE | 2023-09-25 17:13 | EDPHYS ---
Physician Documentation [facility] Name: Michael Thornton Age: 27 yrs Sex: Male : 1995 Arrival Date: 09/25/2023 Time: 12:29 Bed 10 Private MD: MISHEL Physician Dann Alvarez HPI: 09/24 14:31 This 27 yrs old Male presents to ER via Ambulatory with complaints of Heat vanessa exhaustion. 14:31 The patient presents to the emergency department with nausea, vomiting, that is vanessa intermittent. Onset: The symptoms/episode began/occurred 2 day(s) ago. Possible causes: HEAT. The symptoms are aggravated by nothing. The symptoms are alleviated by remaining still. HEAT EXPOSURE. Associated signs and symptoms: Pertinent positives: nausea. Severity of symptoms: At their worst the symptoms were moderate in the emergency department the symptoms are unchanged. The patient has experienced similar episodes in the past, a few times. Historical: - Allergies: 12:50 No Known Allergies; nj1 - PMHx: 12:50 hiatal hernia; nj1 - Immunization history:: Client reports having NOT received the Covid vaccine. - Infectious Disease History:: Denies. - Social history:: Smoking status: Patient denies any tobacco usage or history of. ROS: 14:33 Constitutional: Negative for fever, chills, and weight loss, Eyes: Negative for injury, vanessa pain, redness, and discharge, ENT: Negative for injury, pain, and discharge, Neck: Negative for injury, pain, and swelling, Cardiovascular: Negative for chest pain, palpitations, and edema, Respiratory: Negative for shortness of breath, cough, wheezing, and pleuritic chest pain, Back: Negative for injury and pain, : Negative for injury, bleeding, discharge, and swelling, MS/Extremity: Negative for injury and deformity, Skin: Negative for injury, rash, and discoloration, Neuro: Negative for headache, weakness, numbness, tingling, and seizure, Psych: Negative for depression, anxiety, suicide ideation, homicidal ideation, and hallucinations, Allergy/Immunology: Negative for hives, rash, and allergies, Endocrine: Negative for neck swelling, polydipsia, polyuria, polyphagia, and marked weight changes, Hematologic/Lymphatic: Negative for swollen nodes, abnormal bleeding, and unusual bruising, 14:33 Abdomen/GI: Positive for abdominal pain, nausea, abdominal cramps, Exam: 14:33 Constitutional: This is a well developed, well nourished patient who is awake, alert, vansesa and in no acute distress. Head/Face: Normocephalic, atraumatic. Eyes: Pupils equal round and reactive to light, extra-ocular motions intact. Lids and lashes normal. Conjunctiva and sclera are non-icteric and not injected. Cornea within normal limits. Periorbital areas with no swelling, redness, or edema. ENT: Nares patent. No nasal discharge, no septal abnormalities noted. Tympanic membranes are normal and external auditory canals are clear. Oropharynx with no redness, swelling, or masses, exudates, or evidence of obstruction, uvula midline. Mucous membranes moist. Neck: Trachea midline, no thyromegaly or masses palpated, and no cervical lymphadenopathy. Supple, full range of motion without nuchal rigidity, or vertebral point tenderness. No Meningismus. Chest/axilla: Normal chest wall appearance and motion. Nontender with no deformity. No lesions are appreciated. Cardiovascular: Regular rate and rhythm with a normal S1 and S2. No gallops, murmurs, or rubs. Normal PMI, no JVD. No pulse deficits. Respiratory: Lungs have equal breath sounds bilaterally, clear to auscultation and percussion. No rales, rhonchi or wheezes noted. No increased work of breathing, no retractions or nasal flaring. Abdomen/GI: Soft, non-tender, with normal bowel sounds. No distension or tympany. No guarding or rebound. No evidence of tenderness throughout. Back: No spinal tenderness. No costovertebral tenderness. Full range of motion. Male : Normal genitalia with no discharge or lesions. Skin: Warm, dry with normal turgor. Normal color with no rashes, no lesions, and no evidence of cellulitis. MS/ Extremity: Pulses equal, no cyanosis. Neurovascular intact. Full, normal range of motion. Neuro: Awake and alert, GCS 15, oriented to person, place, time, and situation. Cranial nerves II-XII grossly intact. Motor strength 5/5 in all extremities. Sensory grossly intact. Cerebellar exam normal. Normal gait. Psych: Awake, alert, with orientation to person, place and time. Behavior, mood, and affect are within normal limits. Vital Signs: 12:47 BP 141 / 96; Pulse 76; Resp 18; Temp 98.7; Pulse Ox 100% on R/A; Weight 96.62 kg; nj1 Height 5 ft. 6 in. ; 14:47 BP 128 / 87 Supine; Pulse 70; Resp 16; Pulse Ox 100% on R/A; cm10 14:49 BP 137 / 85 Sitting; Pulse 81; cm10 14:51 BP 134 / 88 Standing; Pulse 75; cm10 12:47 Body Mass Index 34.38 (96.62 kg, 167.64 cm) nj1 MDM: 12:40 Patient medically screened. vanessa 09/24 13:26 Order name: Comprehensive Metabolic Panel; Complete Time: 14:28 EDMS 09/24 13:26 Order name: Creatine Phosphokinase; Complete Time: 14:28 EDMS 09/24 13:26 Order name: CBC with Automated Diff; Complete Time: 14:28 EDMS 09/24 13:26 Order name: Urinalysis w/ reflexes EDMS 09/24 14:28 Order name: PO challenge: GATORADE; Complete Time: 14:59 vanessa 09/24 14:28 Order name: Orthostatics; Complete Time: 14:59 vanessa Administered Medications: 13:20 Drug: NS 0.9% IV 1000 ml IV at 1 bolus Per protocol; 1000 mL bolus Route: IV; Rate: 1 cm10 bolus; Site: left antecubital; 14:59 Follow up: IV Status: Completed infusion; IV Intake: 1000ml cm10 13:20 Drug: NS 0.9% IV 1000 ml IV at 1 bolus Per protocol; 1000 mL bolus Route: IV; Rate: 1 cm10 bolus; Site: left antecubital; 14:59 Follow up: Response: No adverse reaction; IV Status: Completed infusion; IV Intake: cm10 1000ml Disposition Summary: 09/25/23 14:35 Discharge Ordered Notes: Location: Home vanessa Problem: new vanessa Symptoms: have improved vanessa Condition: Stable vanessa Diagnosis - Heat exhaustion, unspecified vanessa - Rhabdomyolysis vanessa - Dehydration vanessa Followup: vanessa - With: Private Physician - When: 2 - 3 days - Reason: Recheck today's complaints, Continuance of care, Re-evaluation by your physician Discharge Instructions: - Discharge Summary Sheet vanessa - Dehydration, Adult vanessa - Rhabdomyolysis vanessa - Near-Syncope, Gpmf-we-Fwis vanessa - Heat Exhaustion vanessa - Dehydration, Adult, Renb-yn-Bfju vanessa - Rehydration, Adult vanessa - Preventing Heat Exhaustion, Adult vanessa Forms: - Medication Reconciliation Form vanessa - Antibiotic Education vanessa - Prescription Opioid Use vanessa - Patient Portal Instructions vanessa - Leadership Thank You Letter vanessa - Work release form eb Prescriptions: - ondansetron 4 mg Oral Tablet,disintegrating - take 1 tablet ORAL route every 8-12 hours; 20 tablet; Refills: 0, Product vanessa Selection Permitted Signatures: Dispatcher [employer] Dann Khanna MD MD cha Jaco, Norma, RN RN nj1 Jaclyn Barksdale RN RN cm10
--- NOTE | 2023-09-25 17:13 | ER ---
Nurse's Notes [facility] Name: Michael Thornton Age: 27 yrs Sex: Male : 1995 Arrival Date: 09/25/2023 Time: 12:29 Bed 10 Private MD: Diagnosis: Heat exhaustion, unspecified;Rhabdomyolysis;Dehydration Presentation: 09/24 12:47 Chief complaint: Patient states: Started vomiting while at work, was doing nj1 better but relapsed yesterday evening, has not vomited today, but feels dizzy and weak. Diarrhea non stop since . Denies fever. Coronavirus screen: Vaccine status: Patient reports being unvaccinated. Ebola Screen: Patient denies travel to an Ebola-affected area in the 21 days before illness onset. Initial Sepsis Screen: Does the patient meet any 2 criteria? No. Patient's initial sepsis screen is negative. Does the patient have a suspected source of infection? No. Patient's initial sepsis screen is negative. Risk Assessment: Do you want to hurt yourself or someone else? Patient reports no desire to harm self or others. Onset of symptoms was September 20, 2023. 12:47 Method Of Arrival: Ambulatory [facility] 12:47 Acuity: KHANH 3 nj1 Historical: - Allergies: 12:50 No Known Allergies; nj1 - PMHx: 12:50 hiatal hernia; nj1 - Immunization history:: Client reports having NOT received the Covid vaccine. - Infectious Disease History:: Denies. - Social history:: Smoking status: Patient denies any tobacco usage or history of. Screenin:23 [facility] ED Fall Risk Assessment (Adult) History of falling in the last 3 months, cm10 including since admission No falls in past 3 months (0 pts) Confusion or Disorientation No (0 pts) Intoxicated or Sedated No (0 pts) Impaired Gait No (0 pts) Mobility Assist Device Used No (0 pt) Altered Elimination No (0 pt) Score/Fall Risk Level 0 - 2 = Low Risk Oriented to surroundings, Maintained a safe environment, Hourly rounding (assess needs \T\ fall precautionary measures) done. Abuse screen: Denies threats or abuse. Denies injuries from another. Nutritional screening: No deficits noted. Tuberculosis screening: No symptoms or risk factors identified. Assessment: 13:23 General: Appears in no apparent distress. comfortable, Behavior is calm, cooperative. cm10 Pain: Denies pain. Neuro: No deficits noted. Level of Consciousness is awake, alert, obeys commands, Oriented to person, place, time, situation, Appropriate for age. Respiratory: No deficits noted. Airway is patent Respiratory effort is even, unlabored, Respiratory pattern is regular, symmetrical. GI: Reports diarrhea, nausea, vomiting. Derm: No deficits noted. Skin is healthy with good turgor, Skin is pink, warm \T\ dry. Musculoskeletal: No deficits noted. Range of motion: intact in all extremities. 14:51 Reassessment: Pt tolerating PO challenge. cm10 Vital Signs: 12:47 BP 141 / 96; Pulse 76; Resp 18; Temp 98.7; Pulse Ox 100% on R/A; Weight 96.62 kg; nj1 Height 5 ft. 6 in. ; 14:47 BP 128 / 87 Supine; Pulse 70; Resp 16; Pulse Ox 100% on R/A; cm10 14:49 BP 137 / 85 Sitting; Pulse 81; cm10 14:51 BP 134 / 88 Standing; Pulse 75; cm10 12:47 Body Mass Index 34.38 (96.62 kg, 167.64 cm) nj1 ED Course: 12:32 Patient arrived in ED. ra3 12:40 Dann Alvarez MD is Attending Physician. [facility] 12:50 Triage completed. nj1 12:51 Arm band placed on right wrist. nj1 13:04 Jaclyn Barksdale, ARABELLA is Primary Nurse. cm10 13:20 Initial lab(s) drawn, by ca, sent to lab. Inserted saline lock: 20 gauge in left cm10 antecubital area, using aseptic technique. Blood collected. Flushed with 10 mL NS. 13:23 Patient has correct armband on for positive identification. Bed in low position. Call cm10 light in reach. Side rails up X 1. Provided Education on: ER process and procedures.. 15:00 No provider procedures requiring assistance completed. IV discontinued, intact, cm10 bleeding controlled, No redness/swelling at site. Pressure dressing applied. Administered Medications: 13:20 Drug: NS 0.9% IV 1000 ml IV at 1 bolus Per protocol; 1000 mL bolus Route: IV; Rate: 1 cm10 bolus; Site: left antecubital; 14:59 Follow up: IV Status: Completed infusion; IV Intake: 1000ml cm10 13:20 Drug: NS 0.9% IV 1000 ml IV at 1 bolus Per protocol; 1000 mL bolus Route: IV; Rate: 1 cm10 bolus; Site: left antecubital; 14:59 Follow up: Response: No adverse reaction; IV Status: Completed infusion; IV Intake: cm10 1000ml Medication: 13:23 VIS not applicable for this client. cm10 Intake: 14:59 IV: 1000ml; Total: 1000ml. cm10 14:59 IV: 1000ml; Total: 2000ml. cm10 Outcome: 14:35 Discharge ordered by . vanessa 15:00 Discharged to home ambulatory, with significant other, cm10 15:00 Condition: good 15:00 Discharge instructions given to patient, Instructed on discharge instructions, follow up and referral plans. medication usage, Demonstrated understanding of instructions, follow-up care, medications, Prescriptions given X 1, 15:00 Patient left the ED. cm10 Signatures: Dann Alvarez MD MD cha Jaco, Norma RN RN nj1 Jaclyn Barksdale RN RN cm10 Irene P[place] 3
[2023-09-26 04:17] VITALS: TEMP 98.7; O2SAT 100
[2023-09-26 04:20] VITALS: BP 134/88
== END 2023-09-25 15:00 | disposition home or self-care (01) ==
LOC: ER 12:29
DX: T67.5XXA Heat exhaustion, unspecified, initial encounter (principal); M62.82 Rhabdomyolysis; E86.0 Dehydration
CPT/HCPCS: 85025; 36415; 82550; 81003; 80053; J7030; 96360; 96361; 99284